=== PATIENT | female | born 1990 | race African-American/Black ===

== ENCOUNTER 2019-04-09 21:10 | Observation (INO) | payer MEDICAID ==
[~2019-04-09] VITALS: Ht 167.6 cm; Wt 68.0 kg
[2019-04-09] MEDS ORDERED: SODIUM CHLORIDE 0.9% 1,000 ML IV SCH (23:00)
[2019-04-09] MEDS ORDERED: ACETAMINOPHEN 500MG TABLET PO NR (23:00)
== END 2019-04-09 23:20 | disposition home or self-care (01) ==
LOC: 8 EST LDRP 21:10
PROVIDERS: ADMIT Specialist; ATTEND Specialist
DX: O26.892 Other specified pregnancy related conditions, second trimester (principal); R51 Headache; N39.8 Other specified disorders of urinary system; Z3A.22 22 weeks gestation of pregnancy
CPT/HCPCS: 99281; G0378

== ENCOUNTER 2019-05-18 11:33 | Emergency (ER) | payer SELFPAY ==
[~2019-05-18] VITALS: Ht 165.1 cm; Wt 73.0 kg
[2019-05-18 11:59] VITALS: BP 110/68
[2019-05-18 12:55] LABS: CLARITY URINE CLEAR (CLEAR); COLOR URINE YELLOW (YELLOW); KETONES URINE NEGATIVE (NEGATIVE); LEUKOCYTE ESTERASE URINE 1+ (NEGATIVE); NITRITE URINE NEGATIVE (NEGATIVE); OCCULT BLOOD URINE NEGATIVE (NEGATIVE); PH URINE 6.5 (4.5-8.0); PROTEIN URINE NEGATIVE (NEGATIVE); SPECIFIC GRAVITY URINE 1.017 (1.005-1.030)
[2019-05-23 04:12] LABS: CHLAMYDIA TRACHOMATIS NAA Negative (Negative); NEISSERIA GONORRHOEAE NAA Negative (Negative)
== END 2019-05-18 13:00 | disposition left against medical advice (07) ==
LOC: ER 11:33
DX: O26.892 Other specified pregnancy related conditions, second trimester (principal); N89.8 Other specified noninflammatory disorders of vagina; Z3A.28 28 weeks gestation of pregnancy
CPT/HCPCS: 81003; 81025; 87210; 87491; 87591; 99283

== ENCOUNTER 2019-07-07 20:53 | Observation (INO) | payer MEDICAID ==
[~2019-07-07] VITALS: Ht 167.6 cm; Wt 81.6 kg
[2019-07-07] MEDS ORDERED: ACETAMINOPHEN WITH CODEINE 300/30MG TABLET PO ONE (21:15)
[2019-07-07] MEDS ORDERED: PNV1TABL50 PO (21:59)
[2019-07-07] MEDS ORDERED: SODIUM CHLORIDE 0.9% 1,000 ML IV ONE (22:00)
[2019-07-07 22:31] LABS: CLARITY URINE CLEAR (CLEAR); COLOR URINE YELLOW (YELLOW); KETONES URINE NEGATIVE (NEGATIVE); LEUKOCYTE ESTERASE URINE NEGATIVE (NEGATIVE); NITRITE URINE NEGATIVE (NEGATIVE); OCCULT BLOOD URINE NEGATIVE (NEGATIVE); PROTEIN URINE NEGATIVE (NEGATIVE); SPECIFIC GRAVITY URINE 1.017 (1.005-1.030)
[2019-07-08] MEDS ORDERED: TERBUTALINE SULFATE 1MG/ML VIAL SUBCUT PRN (00:30)
== END 2019-07-08 02:00 | disposition home or self-care (01) ==
LOC: 8 EST LDRP 20:53
PROVIDERS: ADMIT Specialist; ATTEND Specialist
DX: O26.893 Other specified pregnancy related conditions, third trimester (principal); R39.15 Urgency of urination; R10.2 Pelvic and perineal pain; Z3A.34 34 weeks gestation of pregnancy
CPT/HCPCS: 81003; 96372; 99281; G0378; J3105; 96360; 96361

== ENCOUNTER 2019-07-11 18:08 | Observation (INO) | payer MEDICAID ==
[~2019-07-11] VITALS: Ht 167.6 cm; Wt 81.6 kg
[~2019-07-11 18:08] MED LIST: PNV1TABL50 PO
== END 2019-07-11 20:45 | disposition home or self-care (01) ==
LOC: 8 EST LDRP 18:08
PROVIDERS: ADMIT Obstetrics & Gynecology; ATTEND Obstetrics & Gynecology
DX: O26.893 Other specified pregnancy related conditions, third trimester (principal); R10.9 Unspecified abdominal pain; Z3A.36 36 weeks gestation of pregnancy
CPT/HCPCS: 76805; 99281; G0378

== ENCOUNTER 2020-08-21 16:10 | Emergency (ER) | payer MEDICAID ==
[~2020-08-21] VITALS: Ht 165.1 cm; Wt 91.0 kg
[2020-08-21 16:46] VITALS: BP 108/70
[2020-08-21] MEDS ORDERED: ACETAMINOPHEN 325MG TABLET PO ONE (18:15)
[2020-08-21] MEDS ORDERED: LIDOCAINE HCL/PF 1% 10 MG/ML 5ML VIAL IJ ONE (18:15)
[2020-08-21] MEDS ORDERED: BACITRACIN ZINC OINT UDPKT TOP ONE (18:15)
== END 2020-08-21 19:22 | disposition home or self-care (01) ==
LOC: ER 16:10
DX: S91.311A Laceration without foreign body, right foot, initial encounter (principal); Z98.890 Other specified postprocedural states; W25.XXXA Contact with sharp glass, initial encounter; Y93.89 Activity, other specified; Y92.018 Other place in single-family (private) house as the place of occurrence of the external cause
CPT/HCPCS: 12002; 73630; 99282; J3490

== ENCOUNTER 2020-08-28 15:28 | Emergency (ER) | payer MEDICAID ==
[~2020-08-28] VITALS: Ht 165.1 cm; Wt 91.0 kg
[2020-08-28 15:33] VITALS: BP 114/78
== END 2020-08-28 16:53 | disposition left against medical advice (07) ==
LOC: ER 15:28
DX: Z53.21 Procedure and treatment not carried out due to patient leaving prior to being seen by health care provider (principal)

== ENCOUNTER 2020-08-28 22:29 | Emergency (ER) | payer MEDICAID ==
[~2020-08-28] VITALS: Ht 165.1 cm; Wt 91.0 kg
[2020-08-28 22:30] VITALS: BP 117/65
== END 2020-08-29 00:42 | disposition home or self-care (01) ==
LOC: ER 22:29
DX: Z48.00 Encounter for change or removal of nonsurgical wound dressing (principal)
CPT/HCPCS: 99281

== ENCOUNTER 2020-09-04 20:09 | Emergency (ER) | payer MEDICAID ==
[~2020-09-04] VITALS: Ht 165.1 cm; Wt 82.0 kg
[2020-09-04 20:22] VITALS: BP 107/71
== END 2020-09-04 23:43 | disposition home or self-care (01) ==
LOC: ER 20:09
DX: Z48.02 Encounter for removal of sutures (principal)
CPT/HCPCS: 99281